=== PATIENT | female | born 1985 | race Caucasian/White ===

== ENCOUNTER → 2020-08-17 | Outpatient (CLI) | payer BC ==
[~2020-08-17] MED LIST: DEXT20TA2 PO; ESOM40CA PO; LACT1CAP29 PO; LEXAPRO20 MG PO; MULT-121 PO
[2020-08-17 13:59] LABS: BASO # 0.1 x10^3/uL (0.0-0.2); BASO % 1 % (0-3); EOS % 1 % (0-3); HEMATOCRIT 38.1 % (36.0-47.0); HEMOGLOBIN 12.9 g/dL (12.0-15.5); LYMPH # 1.8 x10^3/uL (1.0-4.8); LYMPH % 31 % (24-48); MEAN CORPUSCULAR HEMOGLOBIN 31 pg (25-35); MEAN CORPUSCULAR HGB CONC 34 g/dL (31-37); MEAN CORPUSCULAR VOLUME 91 fL (79-100); MONO # 0.4 x10^3/uL (0.0-1.1); MONO % 7 % (0-9); NEUT # 3.4 x10^3/uL (1.8-7.7); NEUT % 61 % (31-73); PLATELET COUNT 284 x10^3/uL (140-400); WHITE BLOOD COUNT 5.7 x10^3/uL (4.0-11.0)
[2020-08-17 14:30] LABS: ALBUMIN 3.9 g/dL (3.4-5.0); ALBUMIN/GLOBULIN RATIO 1.1 (1.0-1.7); CALCIUM 8.9 mg/dL (8.5-10.1); CREATININE 0.8 mg/dL (0.6-1.0); GFR 81.6; POTASSIUM 4.6 mmol/L (3.5-5.1); TOTAL BILIRUBIN 0.3 mg/dL (0.2-1.0); TOTAL PROTEIN 7.3 g/dL (6.4-8.2)
== END ==
LOC: SURGPAT 12:23
PROVIDERS: ATTEND Obstetrics & Gynecology
DX: Z01.812 Encounter for preprocedural laboratory examination (principal); Z20.828 Contact with and (suspected) exposure to other viral communicable diseases
CPT/HCPCS: 80053; 85025; U0003

== ENCOUNTER 2020-08-22 06:27 | Observation (INO) | payer BC ==
[2020-08-22] VITALS (8 sets, daily range): BP systolic 105–140; BP diastolic 65–87
[~2020-08-22] VITALS: Ht 170.2 cm; Wt 64.4 kg
[~2020-08-22 06:27] MED LIST changes: +BUPIVACAINE-EPI 0.25%-1:200000 MPF 30 ML VIAL. INJ ONE; +LIDOCAINE 2% PF 5 ML VIAL. ONE; +PROPOFOL 10 MG/ML (20ML) VIAL. IV ONE
[2020-08-22] MEDS ORDERED: ONDANSETRON PF 4 MG/2 ML VIAL. ONE (06:28)
[2020-08-22] MEDS ORDERED: DEXAMETHASONE SOD PHOS 4 MG/ML VIAL ONE (06:28)
[2020-08-22] MEDS ORDERED: ROCURONIUM 50 MG/5 ML VIAL. ONE (06:29)
[2020-08-22] MEDS ORDERED: fentaNYL PF VIAL 100 MCG/2 ML VIAL ONE ×3 (06:30→11:04)
[2020-08-22] MEDS ORDERED: LIDOCAINE 1% PF 2 ML VIAL. ID PRN (07:00)
[2020-08-22] MEDS ORDERED: ONDANSETRON PF 4 MG/2 ML VIAL. IV PRN ×2 (07:00→11:00)
[2020-08-22] MEDS ORDERED: HYDROmorphone 2 MG/ML VIAL IV PRN (07:00)
[2020-08-22] MEDS ORDERED: IV RINGERS,LACTATED 1000ML 1,000 ML IV SCH (07:00)
[2020-08-22] MEDS ORDERED: PROCHLORPERAZINE 10 MG/2 ML VIAL. IV PRN (07:00)
[2020-08-22] MEDS ORDERED: fentaNYL PF VIAL 100 MCG/2 ML VIAL IV PRN (07:00)
[2020-08-22] MEDS ORDERED: MORPHINE SULFATE 2 MG/ML VIAL. IV PRN ×2 (07:00→11:00)
[2020-08-22] MEDS ORDERED: ESTROGENS, CONJ VAGINAL CREAM 30GM TUBE. ONE (07:02)
[2020-08-22] MEDS ORDERED: INDIGOTINDISULFONATE SODIUM 40 MG/5 ML AMPUL. ONE (07:02)
[2020-08-22] MEDS ORDERED: MIDAZOLAM HCL/PF 2 MG/2 ML VIAL. ONE (07:11)
[2020-08-22] MEDS ORDERED: SUCCINYLCHOLINE 200 MG/10 ML VIAL. ONE (07:22)
[2020-08-22] MEDS ORDERED: SEVOFLURANE > 120 MINUTES. IH ONE (09:54)
[2020-08-22] MEDS: fentaNYL PF VIAL 100 MCG/2 ML VIAL IV PRN ×3 (10:26→11:08)
--- NOTE | 2020-08-22 10:53 | PDOC ---
BRIEF OPERATIVE NOTE Date: Aug 22, 2020 Pre-Op Diagnosis CHANCE 2, right sided pelvic pain Post-Op Diagnosis same Procedure Performed LAVH/RSO/left salpingectomy Surgeon Dr. Mansfield Hitcher JAMI Olvera Anesthesiologist Dr. Lowery Anesthesia Type: General Blood Loss 100cc IV Fluid 1200cc Urine Output 600cc clear Specimens Obtained cervix, uterus, right tube and ovary, left tube Findings enlarged uterus, mild bladder adhesions, enlarged cystic right ovary, normal left ovary Complications none Operative Note [id number] MELVA MANSFIELD MD Aug 22, 2020 10:53
[2020-08-22] MEDS ORDERED: 0.9 % SODIUM CHLORIDE 10 ML DISP.SYRIN. IV PRN (11:00)
[2020-08-22] MEDS ORDERED: SIMETHICONE 80 MG TAB.CHEW PO PRN (11:00)
[2020-08-22] MEDS ORDERED: HYDROcodone/APAP 5/325MG 1 TAB TABLET PO PRN (11:00)
[2020-08-22] MEDS ORDERED: ZOLPIDEM 5 MG TABLET. PO PRN (11:00)
[2020-08-22] MEDS ORDERED: NALOXONE 0.4 MG/ML VIAL. IV PRN (11:00)
[2020-08-22] MEDS ORDERED: MAG HYDROX/ALUMINUM HYD/SIMETH 30 ML ORAL.SUSP PO PRN (11:00)
[2020-08-22] MEDS ORDERED: diphenhydrAMINE HCL 25 MG CAPSULE PO PRN (11:00)
[2020-08-22] MEDS ORDERED: MAGNESIUM HYDROXIDE 2,400 MG/30 ML ORAL.SUSP. PO PRN (11:00)
[2020-08-22] MEDS ORDERED: diphenhydrAMINE 50 MG/ML VIAL IV PRN (11:00)
[2020-08-22] MEDS ORDERED: CALCIUM CARBONATE 500 MG TAB.CHEW PO PRN (11:00)
[2020-08-22] MEDS ORDERED: LACTULOSE 20 GM/30 ML SOLUTION. PO PRN (11:00)
--- NOTE | 2020-08-22 11:30 | NUR ---
Pt to room 331 per bed from PACU S/P [facility]. Assessment completed, plan of care explained, call light given to pt. Frequent VS started.
[2020-08-22 12:02] LABS: HEMATOCRIT 37.3 % (36.0-47.0); HEMOGLOBIN 12.5 g/dL (12.0-15.5); RED BLOOD COUNT 4.11 x10^6/uL (3.50-5.40); RED CELL DISTRIBUTION WIDTH 13.1 % (11.5-14.5); WHITE BLOOD COUNT 8.3 x10^3/uL (4.0-11.0)
--- NOTE | 2020-08-22 12:30 | NUR ---
Pt up to bathroom to void.
[2020-08-22] MEDS: oxyCODONE/APAP 5/325 1 TAB TABLET PO PRN ×2 (12:42→17:54)
--- NOTE | 2020-08-22 13:18 | OP ---
DATE OF SURGERY: 08/22/2020 PREOPERATIVE DIAGNOSES: CHANCE 2 and right-sided pelvic pain. POSTOPERATIVE DIAGNOSIS: Enlarged cystic right ovary. PROCEDURE: Laparoscopic-assisted vaginal hysterectomy, right salpingo-oophorectomy and left salpingectomy. SURGEON: Melva Em MD. INSIDE SALES PERSON: JAMI Nelson. ANESTHESIOLOGIST: Sky Lowery MD. ANESTHESIA: General. URINE OUTPUT: 600 mL clear via Ambriz catheter. INTRAVENOUS FLUIDS: 1200 mL of crystalloid. ESTIMATED BLOOD LOSS: 100 mL. SPECIMENS: Cervix, uterus, right tube and ovary and left tube. FINDINGS: She had an enlarged uterus, midline Bladder adhesions likely from her prior section and large cystic right ovary, normal left tube and ovary. There was some small bowel adhesed to the right infundibulopelvic ligament and filmy adhesions to the left infundibulopelvic ligament, but they were low out of the way and the ureter could easily still be visualized on both sides. COMPLICATIONS: None. DESCRIPTION OF PROCEDURE: This patient was taken to the operating room where general anesthesia was placed. The patient was placed in the dorsal lithotomy position in [facility]. The patient's abdomen and vagina were both prepped and draped in the normal sterile fashion and a Ambriz catheter had been inserted under sterile technique. Upon my arrival, a timeout was performed. Once everyone agreed on the patient, the site, the procedure, the antibiotics, the procedure was initiated. A bivalve speculum was placed in the patient's vagina. A single-tooth tenaculum was used to grasp the anterior lip of the cervix. A 10 mL of 0.25% Marcaine with epinephrine was used to circumferentially inject around the cervix for both hemodissection and hemostatic purposes later. The Valtchev uterine manipulator was then placed through the endocervical os, locked on the single tooth tenaculum and the bivalve speculum was then removed. Top gloves were discarded and changed. Attention was then turned to the abdomen where a small infraumbilical skin incision was made over the existing scar. Curved Paz was used to dissect through the subcuticular layer to the fascia. The 5 mm Visiport was used to directly into the abdominal cavity. Opening patient pressure was 3-4 mmHg. Carbon dioxide gas was used to then appropriately insufflate the abdominal cavity to maintain a pressure of 15 mmHg. The patient was placed in Trendelenburg position. The left lower quadrant port was placed over an existing scar. It was injected with 0.25% Marcaine, making a small incision and placing it in under direct visualization without difficulty, 4-5 mL of air was placed in the trocar cuff balloon. The camera was then moved to the lateral port to look at the umbilical port. It was also in a good spot and 4-5 mL of air was used to insufflate this trocar port as well. The camera was moved back to the midline where the right lower quadrant port was placed. There were no adhesions on the anterior abdominal wall. So using the camera to transilluminate the abdominal wall, finding all the vasculature, finding an area clear of any vasculature, making a small incision and immediately upon making it superficially, there was a vessel in the subcutaneous area that was squirting, so I got a curved Paz, clamped it off and got a handheld cautery to cauterize this. Once this was done, I did ask for the laparoscopic closure, the Endo Close stitch, but it stopped on its own at this point, so I did go ahead and place the trocar through, insufflated it with 4-5 mL of air in the cuff and then this procedure was initiated. There was absolutely no bleeding on the inside at all. The left tube and ovary were normal, so she wanted to keep her left ovary. So, we went under the tube above the ovary with the LigaSure and did a left salpingectomy, crossed the left uteroovarian pedicle, which was large and dilated, then crossed it and then crossed the left round ligament, leaving the left ovary per the patient's request, going down and starting the bladder flap, elevating it and starting it sharply using the monopolar hook to take it down. We went to the right side and we did find the ureter coursing low in the pelvis on the left side. Then, we elevated the right tube and ovary found the ureter coursing all the way down the pelvic sidewall. We could watch it peristalse. Staying high, there was a large cyst on the right ovary where all of her pain was and she desired this side out, so staying high on the IP ligament, going below the ovary this time to take it, cauterizing and cutting into the right tube and ovary and then crossing the right round ligament as well. Then, going down and further creating the bladder flap and taking it down the bladder came down very, very nicely. Incidentally, there was like a loose staple on the bladder, I am sure that was from her prior appendectomy but going down and using the monopolar hook elevating it with the [place], the bladder and then cutting across like a hot knife and peeling it down nicely on both sides. So, the uterine vessels were obtained on the right side. Once the bladder was down and staying inside this pedicle hugging the cervix and uterus staying posteriorly inside that pedicle, I am going through the cardinal and broad ligaments, cauterizing and cutting with the LigaSure and then on the left side, crossing contralaterally and going down after the round, getting on the uterus and getting the uterines and then staying inside that pedicle going through the cardinal and broad as well. The uterus was completely free, blanched and mobile. So at this point, everything was removed from the abdomen and attention was turned vaginally. Before doing this, I looked around the abdomen upon initial entry, she had no gross abdominal adhesions other than the lower ones I mentioned around the IP ligaments. The right upper quadrant liver area looked okay. There were no significant adhesions even where the appendectomy was other than that loop of small bowel on the IP ligament on the right, but the colon was mobile on that side from the prior appendectomy. There was, I guess, one loose staple I saw near the bladder, but that was it. Everything else was grossly normal. So, everything was removed and attention was turned vaginally. The single tooth and Valtchev were removed. A weighted speculum was placed in the patient's vagina. Thyroid Tano clamps were placed on the anterior and posterior lips of the cervix respectively. A scalpel was used to make a circumferential incision in the cervix and the scalpel was used to gently tease up the bladder with using the plastic Yankauer tip for traction on the bladder pushing up and then using it to peel it off. Then, an open Ray-Renay 4 x 4 was used to gently push up the remaining anterior vaginal mucosa off the cervix and the anterior cul-de-sac was digitally and bluntly entered. The Ray-Renay was taken out and passed off and the curved Jamie was placed in the anterior cul-de-sac. The cervix was elevated and the posterior cul-de-sac had already been entered with the knife going around. It was extended sharply with the curved Valencia scissors and a #0 Vicryl stitch was used to secure the posterior peritoneum here to the vaginal cuff, was tagged with a curved Paz clamp. The needle was cut and passed off. The short weighted vaginal speculum was removed and replaced with the long weighted Gregory speculum in the posterior cul-de-sac. Curved Radha clamps x 2 were placed on the patient's left uterosacral ligament where they were doubly clamped with curved Heaneys, cut with curved Valencia scissors and suture ligated x 2 with 0 Vicryl. Second one was taken through the vaginal cuff securing uterosacral ligament to the vaginal cuff. Needle was cut and passed off, tagged with a straight Paz clamp. This was done exactly the same on the right side, double clamping the uterosacrals with curved Radha's, cutting with curved Valencia scissors, suture ligating x 2 with 0 Vicryl, taking the second one through the vaginal cuff securing uterosacral ligament to the vaginal cuff, tagging it with a straight Paz clamp and cutting and passing the needle off. The remaining pedicle on the right side was delineated with a right angle Mixter, clamp and the vaginal LigaSure was used to cauterize and cut the remaining pedicle. This was done exactly the same on the left, taking the right angle clamp around the remaining pedicle using the vaginal LigaSure to cauterize and cut cervix, uterus, right tube and ovary and left tube were delivered in total and passed off for permanent pathology. Once this was done, a sponge stick was used to examine the pedicles. There was some slight oozing from the right side. A burlisher was placed over this with a 2-0 Vicryl. Excellent hemostasis was achieved. There was no other bleeding. So the anterior bladder peritoneum was grasped with a long Allis and again examined all the pedicles which were dry. The long Gregory speculum was removed and replaced with the short weighted vaginal speculum in the vagina. At this point, 2-0 Vicryl was taken through the anterior bladder peritoneum, right uterosacral ligament, posterior peritoneum, and left uterosacral ligament, thus closing the peritoneum in a pursestring like fashion. Once this was done, the right and left uterosacral tags were clipped as well. A full length 2-0 Vicryl was used to close the cuff in an anterior to posterior running locked fashion with excellent results. Just one interrupted stitch was placed in the middle just first strength. Complete hemostasis was achieved vaginally, so all gloves were discarded and changed. All sponge, lap and needle counts had been correct x 2 by OR personnel. All gloves were discarded and changed and attention was turned back above for a second look. At this point, the lights were dimmed. The patient was placed back in Trendelenburg. Gas was reinsufflated and she was completely hemostatic above. At this point, copious irrigation revealed hemostasis. She still had her left ovary per her request. Everything else was removed. There was no bleeding in the right and left pericolic gutters. I did look up at that right lower quadrant incision, still it was completely hemostatic, and it was not bleeding, abdominally either from where we hit that bleeder on the way in, so nothing was welling up there. So Tisseel was placed over the cuff. The trocar cuff was deflated on the right side and it was removed. There was again still no active bleeding, but I did go ahead and place the Endo Close here and closed that port off just for good measure knowing that there was some bleeding initially on that side just to double check and make sure on everything. So, we watched that when completely closed from the inside. Again, no bleeding at maintain the pneumo. Once it was closed and there was no bleeding from the abdominal site either. The left lower quadrant port, that trocar balloon was deflated, it was removed. The cul-de-sac remained dry. I looked up at the right lower quadrant again, it was dry, so gas was released from the umbilical port. That trocar cuff was deflated. Once all the gas was out, it was removed, all 3 port sites at the skin were closed with 4-0 nylon. I put 2 in the right lower quadrant one myself just to make sure again there was no bleeding and good measure. It was soft. There was no evidence of hematoma. Initially, I thought there might be a subcutaneous hematoma in the beginning, but I did not see any evidence of that at the end. There was no bleeding internally or coming out the skin even after kind of pushing on it, making sure nothing could be expressed and I put the #2 nylon and then closed it and it looked good. The other 2 port sites were closed by Kathy. Once those were closed, all of them had been injected in the initial before putting in them, but once these were closed, the patient was awakened from anesthesia and brought to recovery room in stable condition. MELVA EM MD DR: OMAR/rhoda JOB#: [id number] / [id number]
--- NOTE | 2020-08-22 18:55 | NUR ---
Discharge and follow up instructions reviewed with pt, Rx was given to pt prior to admission. Pt has voided 6 times, ate dinner without any difficulty and has denied any complications at this time. Pt taken out of the hospital per W/C to meet her who was taking her home.
[2020-08-22] MEDS ORDERED: PANTOPRAZOLE 40 MG TABLET.DR. PO SCH (21:00)
[2020-08-22] MEDS ORDERED: NON FORMULARY ITEM (Dextroamphetamine/Amphetamine (Adderall 20 Mg Tablet) 1 TAB) PO SCH (21:00)
[2020-08-23] MEDS ORDERED: CITALOPRAM 20 MG TABLET. PO SCH (09:00)
--- NOTE | 2020-09-04 11:56 | PATHOLOGY ---
[facility] Accession Number: [id number] . 01 Material submitted: . uterus - UTERUS CERVIX LEFT AND RIGHT TUBE, OVARY . 01 Clinical history: . CIN2 RIGHT OVARIAN CYST MENORRHAGIA RIGHT LAP ASSISTED VAGINAL HYSTERECTOMY . 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 - Exocervical margin negative for dysplasia. - Inactive/weakly proliferative endometrium. - Subserosal cystic [place]ard rests, left fallopian tube. - Congestion of bilateral fallopian tubes. - Follicular cyst and cystic follicles of right ovary. (JPM:sandro; 08/27/2020) [facility] 08/28/2020 0836 Local . 02 Comment: The entire uterine cervix is submitted for histologic evaluation. There is moderate to focal severe dysplasia of the uterine cervix with focal superficial endocervical glandular extension. There is no evidence of invasive carcinoma. The exocervical margin is negative for dysplasia. (JPM:sandro; 08/27/2020) . 02 Electronically signed: . Austin Morejon MD, Pathologist NPI- [id number] . 01 Gross description: . The specimen is received in formalin labeled " Nereyda Mcconnell, uterus, L and R tube, ovary". Received is a 127 g, 8.7 x 6.5 x 4.4 cm uterus with attached cervix, attached left fallopian tube weighing 4 g, and attached right adnexa weighing 36 g. The uterine serosa is pink-adams to pink-marshall and smooth in appearance. The 1.0 cm cervical os is surrounded by pink-adams, smooth ectocervical mucosa. The uterus is oriented using the peritoneal reflection and the anterior paracervical margin is inked black. The uterus is opened laterally to reveal a pale adams endocervical canal measuring 3.0 cm in length. The endometrial cavity is triangular measuring 4.3 cm in length by 2.5 cm in width. The endometrium is pale adams, glistening to slightly hemorrhagic in appearance and measures 0.1 cm in thickness. Serial sectioning reveals a adams-pink, trabeculated myometrium measuring up to 2.6 cm in thickness with no grossly distinct nodules or lesions. . The left fimbriated fallopian tube measures 6.5 cm in length by up to 0.6 cm in diameter. Sectioning reveals a pinpoint to patent lumen, and the fallopian tube appears grossly unremarkable . The right adnexa consists of a fimbriated fallopian tube measuring 5.8 cm in length by up to 0.7 cm in diameter attached to a 4.6 x 3.6 x 3.4 cm cystic ovary. Sectioning through the fallopian tube reveals a pinpoint to patent lumen and the fallopian tube appears grossly unremarkable. Sectioning through the ovary reveals several cystic structures ranging in size from 0.3 to 3.5 cm filled with yellow serous fluid. The remaining cut surfaces display pale adams, normal ovarian stroma. The lining of the larger cyst is smooth to wrinkled in appearance with no grossly distinct papillary excrescences. The specimen is submitted representatively as follows: . A1 12:00 cervix A2 6:00 cervix A3 anterior endomyometrium A4 posterior endomyometrium A5 left fallopian tube A6-A8 right adnexa. (CAA; 08/22/2020) . After initial microscopic examination, the remainder of the cervix is submitted as follows: . A9-A11 remainder of 12:00 to 3:00 cervix A12-A13 remainder of 3:00 to 6:00 cervix A14-A15 remainder of 6:00 to 9:00 cervix A16-A20 remainder of 9:00 to 12:00 cervix. (CAA; 08/23/2020) QAC/QA 08/27/2020 1655 Local . Pathologist provided ICD-10: N87.1, N83.01 . 02 CPT . 239426 Performed at: [address], [place], [place] [id number] MD Ebenezer Curtis MD Phone: [phone] Performed at: 02 [facility] [address] [place], [place] [id number] MD Austin Morejon MD Phone: [phone]
== END 2020-08-22 18:55 | disposition home or self-care (01) ==
LOC: SURG 06:27 → EDUNIT# 07:30 → 3 NORTH 10:58
PROVIDERS: ADMIT Obstetrics & Gynecology; ATTEND Obstetrics & Gynecology
DX: N83.201 Unspecified ovarian cyst, right side (principal); R10.2 Pelvic and perineal pain; N85.2 Hypertrophy of uterus; K66.0 Peritoneal adhesions (postprocedural) (postinfection); Z98.891 History of uterine scar from previous surgery
CPT/HCPCS: 36415; 58552; 81025; 85027; 86850; 86900; 86901; 88307; G0378; G0379; J0330; J0690; J1100; J2250; J2704; J3010; J3490; J7030; J7120; J2405